=== PATIENT | female | born 1965 | race Two or more races ===

== ENCOUNTER → 2016-12-09 | Outpatient (CLI) | payer OTHER ==
--- NOTE | 2016-12-09 12:25 | RAD ---
2 views of the right hip without comparison for no known injury chronic, chronic low back pain, posterior right hip pain radiating down the right leg to above the knee for 1.5 years. Findings: There is no fracture, dislocation, or acute osseous abdomen involving the right hip. No significant degenerative changes are identified. Small ossification at the greater tuberosity likely represents an accessory ossicle or calcification at the gluteus tendon insertion, and is of doubtful clinical significance. Impression: 1. No fracture or acute osseous abnormality of the right hip. For clinical history of radicular lower extremity pain, evaluation of the lumbar soft tissues with MRI examination should be considered.
--- NOTE | 2016-12-09 12:27 | RAD ---
Lumbar spine radiographs 12/09/2016 Indication: Chronic low back pain and posterior right hip pain Comparison: None available Technique: 2 views of the lumbar spine are provided. Findings: There are 5 non rib-bearing lumbar type vertebral bodies. There is minimal anterolisthesis of L4 on L5. No definite pars defect. There is moderate to advanced facet arthropathy in the lower lumbar spine from L3-L4 through L5-S1. Mild disc height loss at L5-S1. No acute fracture. No significant soft tissue abnormality identified. Impression: Minimal anterolisthesis of L4 on L5, likely secondary to facet arthropathy. There is moderate to advanced facet arthropathy in the lower lumbar spine.
== END | disposition home or self-care (01) ==
LOC: RAD 09:40
PROVIDERS: ATTEND Surgery
DX: M16.11 Unilateral primary osteoarthritis, right hip (principal); M54.5 Low back pain
CPT/HCPCS: 72100; 73502